=== PATIENT | male | born 1955 | race Caucasian/White ===

== ENCOUNTER → 2020-09-20 | Outpatient (CLI) | payer OTHER ==
[~2020-09-20] MED LIST: BLOOD PRESSURE; COLACE CLEAR50 MG PO; DELTASONE20 MG PO; DIVALPROEX SOD250 M3 PO; DOLOPHINE HCL5 MG PO; EPIPEN0.3 MG/0.1; GAS RELIEF80 MG PO; IRON; IRON325 M1 PO; LIPITOR 40 MG T40 M1 PO; MELATONIN3 M1 PO; NEURONTIN 300M300 M2 PO; NICOTINE LOZENGE4 MG; OMEPRAZOLE20 M2 PO; OXYCODONE HCL 55 MG PO; PROAIR HFA8.5 GM; PROSCAR 5MG TABL5 M1 PO; RISPERDAL 1 MG T1 MG PO; ROBAXIN500 MG PO; SILDENAFIL CIT100 MG PO; TRAZODONE HCL50 MG PO; VITAMIN D325 G1 PO; ZESTRIL20 MG PO; ZOLOFT100 MG PO; [UNRECOGNIZED DRUG - OTHER]
== END ==
LOC: M.PC 08:00
PROVIDERS: ATTEND Physical Medicine & Rehabilitation
DX: M54.5 Low back pain (principal); M47.26 Other spondylosis with radiculopathy, lumbar region; M25.512 Pain in left shoulder; M75.42 Impingement syndrome of left shoulder

== ENCOUNTER → 2021-01-09 | Outpatient (CLI) | payer OTHER | LOC: M.MRI 07:01 | PROVIDERS: ATTEND Physical Medicine & Rehabilitation | DX: S46.812A Strain of other muscles, fascia and tendons at shoulder and upper arm level, left arm, initial encounter (principal); M75.52 Bursitis of left shoulder; M19.012 Primary osteoarthritis, left shoulder; M43.16 Spondylolisthesis, lumbar region; M51.36 Other intervertebral disc degeneration, lumbar region; M43.26 Fusion of spine, lumbar region; M43.27 Fusion of spine, lumbosacral region; M48.061 Spinal stenosis, lumbar region without neurogenic claudication; M51.26 Other intervertebral disc displacement, lumbar region; X58.XXXA Exposure to other specified factors, initial encounter; Y93.89 Activity, other specified; Y92.89 Other specified places as the place of occurrence of the external cause; Y99.8 Other external cause status ==